=== PATIENT | female | born 1935 | race Caucasian/White ===

== ENCOUNTER 2016-08-14 11:22 | Emergency (ER) | payer MEDICARE, OTHER ==
[~2016-08-14] VITALS: Ht 162.6 cm; Wt 72.1 kg
[~2016-08-14 11:22] MED LIST: ACET325T53 PO; ASPI81TA2 PO; CHOL20004 PO; DONE5TAB3 PO; HYDR-3326 PO; LISI2.5T2 PO; MELA1TAB9 PO; MELO-270 PO; MEMA28CA PO; MUPI22OI7; PANT40TA2 PO
[2016-08-14] MEDS ORDERED: SECONDARY IV SET 1 EA INFUS.SET MC ONE (11:40)
[2016-08-14] MEDS ORDERED: IV NS 0.9% 500 ML IV ONE (11:40)
[2016-08-14] MEDS ORDERED: IV NS 0.9% 2,000 ML ONE (11:40)
[2016-08-14] MEDS ORDERED: IV SET PRIMARY 1 EA INFUS.SET MC ONE (11:40)
[2016-08-14] MEDS ORDERED: CEFTRIAXONE 1GM BAG (ER ONLY) 50 ML IV ONE ×2 (11:40→12:00)
[2016-08-14] MEDS ORDERED: IV SET PRIMARY PUMP SET 1 EA INFUS.SET MC ONE (11:41)
[2016-08-14] MEDS ORDERED: FURO20TA4 PO (11:45)
[2016-08-14] MEDS ORDERED: ACET-868 PO (11:45)
[2016-08-14] MEDS ORDERED: MULT-659 PO (11:45)
[2016-08-14] MEDS ORDERED: ASCO500T9 PO (11:45)
[2016-08-14] MEDS ORDERED: LORA0.5T PO (11:45)
[2016-08-14] MEDS ORDERED: DIPH1TAB70 PO (11:45)
[2016-08-14] MEDS ORDERED: ALLA266C2 TP (11:45)
[2016-08-14] MEDS ORDERED: CHOL100044 PO (11:45)
[2016-08-14] MEDS ORDERED: NAPR220T PO (11:45)
[2016-08-14] MEDS ORDERED: GUAI118S20 PO (11:45)
[2016-08-14] MEDS ORDERED: TRAZ-144 PO (11:45)
[2016-08-14] MEDS ORDERED: GUAI-177 PO (11:45)
[2016-08-14] MEDS ORDERED: ACET-2605 PO (11:45)
[2016-08-14] MEDS ORDERED: [UNRECOGNIZED DRUG - CODE] PO (11:45)
[2016-08-14 11:59] LABS: BASOPHILS # (AUTO) 0.1 /CMM (0.0-0.2); BASOPHILS % (AUTO) 0.3 % (0.0-2.0); DIFF TOTAL % 100 %; EOSINOPHILS # (AUTO) 0.1 /CMM (0.0-0.7); EOSINOPHILS % (AUTO) 0.3 % (0.0-6.0); HEMATOCRIT 36 % (33-45); HEMOGLOBIN 12.4 g/dL (11.5-14.8); LYMPHOCYTES # (AUTO) 0.6 /CMM (0.8-4.8); MEAN CORPUSCULAR HEMOGLOBIN 32 PG (26.0-33.0); MEAN CORPUSCULAR HGB CONC 35 g/dl (31.0-36.0); MEAN CORPUSCULAR VOLUME 92 fL (82-100); MONOCYTES # (AUTO) 0.2 /CMM (0.1-1.30); MONOCYTES % (AUTO) 0.6 % (2.0-12.0); NEUTROPHILS # (AUTO) 30.3 /CMM (1.8-8.9); NEUTROPHILS % (AUTO) 96.8 % (43.0-81.0); PLATELET COUNT (AUTO) 118 /CMM (150-450)
[2016-08-14] MEDS ORDERED: IV NS 0.9% 1,000 ML BAG IV ONE (12:00)
[2016-08-14 12:02] LABS: WHITE BLOOD COUNT (AUTO) 31.3 K/uL (4.3-11.0)
[2016-08-14 12:11] LABS: KETONES,URINE 15 (NEGATIVE); LEUKOCYTE ESTERASE ,URINE Large (NEGATIVE)
[2016-08-14 12:12] LABS: ADD UA MICROSCOPIC YES
[2016-08-14 12:13] LABS: INR 1.13 (0.87-1.13); PROTHROMBIN TIME 11.9 SECS (9.5-12.7)
[2016-08-14 12:14] LABS: ADD URINE CULTURE YES
[2016-08-14 12:25] LABS: ALANINE AMINOTRANSFERASE 29 U/L (12-78); ANION GAP 18 (5-14); ASPARTATE AMINOTRANSFERASE 51 U/L (15-37); BAND % (MANUAL) 33 % (0.0-5.0); BILIRUBIN,DIRECT 0.3 mg/dL (0.0-0.2); BILIRUBIN,TOTAL 1.6 mg/dL (0.2-1.0); CALCIUM, SERUM 8.9 mg/dL (8.5-10.1); CARBON DIOXIDE 21 mmol/L (21-32); CHLORIDE 101 mmol/L (98-107); CREATININE 1.6 mg/dL (0.6-1.3); GLUCOSE 112 mg/dL (74-106); INDIRECT BILIRUBIN 1.3 mg/dL (0.0-1.1); LYMPHOCYTES % (MANUAL) 5 % (16-48); METAMYELOCYTES % 4 % (0-0); MYELOCYTES % 2 % (0-0); PLATELET ESTIMATE DECREASED; POTASSIUM 3.7 mmol/L (3.5-5.1); SODIUM SERUM 137 mmol/L (136-145); TOTAL PROTEIN, SERUM 7.1 g/dL (6.4-8.2); UREA NITROGEN, BLOOD 39 mg/dL (7-18)
[2016-08-14 12:35] LABS: TROPONIN I 0.493 ng/mL (0.00-0.056)
[2016-08-14 12:45] LABS: LACTIC ACID 3.4 mmol/L (0.4-2.0)
[2016-08-14 12:55] LABS: *LACTIC ACID REFLEX FLAG YES
[2016-08-14 13:01] VITALS: BP 134/73
[2016-08-14] MEDS ORDERED: ASPIRIN EC 81 MG TABLET.DR PO ONE (14:28)
[2016-08-14] MEDS ORDERED: ASPIRIN 81 MG TAB.CHEW PO ONE (14:30)
[2016-08-14] MEDS ORDERED: ASPIRIN 81 MG TAB.CHEW ONE (14:30)
== END 2016-08-14 14:46 | disposition short-term general hospital (02) ==
LOC: ER 11:24
DX: A41.9 Sepsis, unspecified organism (principal); R65.20 Severe sepsis without septic shock; N39.0 Urinary tract infection, site not specified; N20.0 Calculus of kidney; J90 Pleural effusion, not elsewhere classified; N17.9 Acute kidney failure, unspecified; I21.4 Non-ST elevation (NSTEMI) myocardial infarction; F03.90 Unspecified dementia, unspecified severity, without behavioral disturbance, psychotic disturbance, mood disturbance, and anxiety; I10 Essential (primary) hypertension; F41.9 Anxiety disorder, unspecified; Z88.1 Allergy status to other antibiotic agents; Z79.82 Long term (current) use of aspirin
CPT/HCPCS: 36415; 71010; 74176; 80048; 80076; 81001; 83605 ×2; 84484; 85025; 85730; 86850; 87040 ×2; 87077; 87081; 87086; 87186 ×4; 93005; 96360; 96365; 99291; A4606; J0696; J7030; J7040; 81000-TC; Z7610